=== PATIENT | male | born 1990 | race Two or more races ===

== ENCOUNTER 2022-10-20 13:21 | Emergency (ER) | payer MEDICAID, OTHER ==
[~2022-10-20] VITALS: Ht 177.8 cm; Wt 102.0 kg
[2022-10-20 13:28] VITALS: BP 148/82
[2022-10-20] MEDS ORDERED: OFLO5DRO4 LEFT EAR (14:04)
== END 2022-10-20 14:31 | disposition home or self-care (01) ==
LOC: ER 13:21
DX: H60.92 Unspecified otitis externa, left ear (principal)
CPT/HCPCS: 99283